=== PATIENT | female | born 1950 | race Caucasian/White ===

== ENCOUNTER 2017-04-25 11:56 | Observation (INO) | payer MEDICARE ==
[2017-04-25] MEDS ORDERED: NITROGLYCERIN OINT 1 INCH/GM PACKET TOPICAL STA (12:23)
[2017-04-25] MEDS: ASPIRIN 81 MG PO STA ×2 (12:32→12:34)
--- NOTE | 2017-04-25 12:32 | ED ---
General Adult HPI - General Chief complaint: Chest Pain Stated complaint: chest pain Time Seen by Provider: 04/25/17 12:00 Source: patient, RN notes reviewed Mode of arrival: wheelchair Limitations: no limitations - History of Present Illness Initial comments: This is a 66-year-old female presents emergency department stating that she thinks she had a heart attack on . Patient states she started having chest pain on with some shortness of breath and nauseous she states that the pain lasted all day long but she didn't come in because she had worked to that today. Patient states the pain is been constant ever since but not quite as bad as it was on . Patient states she's had no recent fever chills or cough. Patient denies any headache patient denies lightheadedness patient denies dizziness patient denies any near syncopal episodes. Patient denies abdominal pain patient denies nausea vomiting diarrhea. Patient has a smoking history and states she has high cholesterol she also has a mother who had a heart attack. - Related Data Home Medications Medication Instructions Recorded Confirmed Hydrocodone/Acetaminophen [[place] 1 tab PO DAILY PRN 04/25/17 04/25/17 10-325] diphenhydrAMINE HCL [Children's 25 mg PO HS PRN 04/25/17 04/25/17 Benadryl Allergy] Allergies Allergy/AdvReac Type Severity Reaction Status Date / Time ibuprofen [From Motrin] Allergy Unknown Verified 04/25/17 12:51 Review of Systems ROS Statement: Those systems with pertinent positive or pertinent negative responses have been documented in the HPI. ROS Other: All systems not noted in ROS Statement are negative. Past Medical History Past Medical History: No Reported History History of Any Multi-Drug Resistant Organisms: None Reported Past Surgical History: Section, Tubal Ligation Additional Past Surgical History / Comment(s): right knee surg Past Psychological History: No Psychological Hx Reported Smoking Status: Current some day smoker Past Alcohol Use History: Occasional Past Drug Use History: None Reported General Exam - General Exam Comments Initial Comments: GENERAL: Patient is well-developed and well-nourished. Patient is nontoxic and well- hydrated and is in mild distress. ENT: Neck is soft and supple. No significant lymphadenopathy is noted. Oropharynx is clear. Moist mucous membranes. Neck has full range of motion without eliciting any pain. EYES: The sclera were anicteric and conjunctiva were pink and moist. Extraocular movements were intact and pupils were equal round and reactive to light. Eyelids were unremarkable. PULMONARY: Unlabored respirations. Good breath sounds bilaterally. No audible rales rhonchi or wheezing was noted. CARDIOVASCULAR: There is a regular rate and rhythm without any murmurs gallops or rubs. ABDOMEN: Soft and nontender with normal bowel sounds. No palpable organomegaly was noted. There is no palpable pulsatile mass. SKIN: Skin is clear with no lesions or rashes and otherwise unremarkable. NEUROLOGIC: Patient is alert and oriented x3. Cranial nerves II through XII are grossly intact. Motor and sensory are also intact. Normal speech, volume and content. Symmetrical smile. MUSCULOSKELETAL: Normal extremities with adequate strength and full range of motion. No lower extremity swelling or edema. No calf tenderness. LYMPHATICS: No significant lymphadenopathy is noted PSYCHIATRIC: Normal psychiatric evaluation. Normal interpersonal interactions appears functionally intact in deals appropriately with others. No signs of depression. No signs of anxiety. Limitations: no limitations Course Vital Signs 04/25/17 11:57 Temperature 98.7 F Pulse Rate 103 H Respiratory 16 Rate Blood Pressure 168/97 Medical Decision Making - Medical Decision Making EKG shows normal sinus rhythm at 94 bpm ME interval is 132 QRS is 84 QT interval 368 QTC is 460. Patient's EKG shows no ST segment elevation or depression or T wave abnormalities are noted Chest x-ray shows COPD. - Lab Data Result diagrams: 04/25/17 12:15 04/25/17 12:15 Lab Results 04/25/17 04/25/17 04/25/17 Range/Units 12:15 12:15 12:15 WBC 6.6 (3.8-10.6) k/uL RBC 4.32 (3.80-5.40) m/uL Hgb 14.7 (11.4-16.0) gm/dL Hct 42.1 (34.0-46.0) % MCV 97.4 (80.0-100.0) fL MCH 34.1 (25.0-35.0) pg MCHC 35.0 (31.0-37.0) g/dL RDW 13.0 (11.5-15.5) % Plt Count 244 (150-450) k/uL Neutrophils % 58 % Lymphocytes % 30 % Monocytes % 8 % Eosinophils % 1 % Basophils % 1 % Neutrophils # 3.8 (1.3-7.7) k/uL Lymphocytes # 2.0 (1.0-4.8) k/uL Monocytes # 0.5 (0-1.0) k/uL Eosinophils # 0.1 (0-0.7) k/uL Basophils # 0.1 (0-0.2) k/uL PT (9.0-12.0) sec INR (<1.2) APTT (22.0-30.0) sec Sodium 137 (137-145) mmol/L Potassium 4.1 (3.5-5.1) mmol/L Chloride 102 (98-107) mmol/L Carbon Dioxide 24 (22-30) mmol/L Anion Gap 11 mmol/L BUN 7 (7-17) mg/dL Creatinine 0.59 (0.52-1.04) mg/dL Est GFR (MDRD) Af Amer >60 (>60 ml/min/1.73 sqM) Est GFR (MDRD) Non-Af >60 (>60 ml/min/1.73 sqM) Glucose 107 H (74-99) mg/dL Calcium 9.0 (8.4-10.2) mg/dL Magnesium 2.0 (1.6-2.3) mg/dL Total Bilirubin 0.6 (0.2-1.3) mg/dL AST 40 H (14-36) U/L ALT 54 H (9-52) U/L Alkaline Phosphatase 65 (38-126) U/L Total Creatine Kinase 50 (30-135) U/L CK-MB (CK-2) 0.3 (0.0-2.4) ng/mL CK-MB (CK-2) Rel Index 0.6 Troponin I <0.012 (0.000-0.034) ng/mL Total Protein 7.8 (6.3-8.2) g/dL Albumin 4.3 (3.5-5.0) g/dL 04/25/17 Range/Units 12:15 WBC (3.8-10.6) k/uL RBC (3.80-5.40) m/uL Hgb (11.4-16.0) gm/dL Hct (34.0-46.0) % MCV (80.0-100.0) fL MCH (25.0-35.0) pg MCHC (31.0-37.0) g/dL RDW (11.5-15.5) % Plt Count (150-450) k/uL Neutrophils % % Lymphocytes % % Monocytes % % Eosinophils % % Basophils % % Neutrophils # (1.3-7.7) k/uL Lymphocytes # (1.0-4.8) k/uL Monocytes # (0-1.0) k/uL Eosinophils # (0-0.7) k/uL Basophils # (0-0.2) k/uL PT 10.1 (9.0-12.0) sec INR 1.0 (<1.2) APTT 23.9 (22.0-30.0) sec Sodium (137-145) mmol/L Potassium (3.5-5.1) mmol/L Chloride (98-107) mmol/L Carbon Dioxide (22-30) mmol/L Anion Gap mmol/L BUN (7-17) mg/dL Creatinine (0.52-1.04) mg/dL Est GFR (MDRD) Af Amer (>60 ml/min/1.73 sqM) Est GFR (MDRD) Non-Af (>60 ml/min/1.73 sqM) Glucose (74-99) mg/dL Calcium (8.4-10.2) mg/dL Magnesium (1.6-2.3) mg/dL Total Bilirubin (0.2-1.3) mg/dL AST (14-36) U/L ALT (9-52) U/L Alkaline Phosphatase (38-126) U/L Total Creatine Kinase (30-135) U/L CK-MB (CK-2) (0.0-2.4) ng/mL CK-MB (CK-2) Rel Index Troponin I (0.000-0.034) ng/mL Total Protein (6.3-8.2) g/dL Albumin (3.5-5.0) g/dL Disposition Clinical Impression: Chest pain Disposition: ADMITTED IP TO THIS HOSP Referrals: Damien Light DO [Primary Care Provider] - 1-2 days Time of Disposition: 13:55
[2017-04-25 12:44] LABS: Basophils # (A) 0.1 k/uL (0-0.2); Basophils % (A) 1 %; CH 34.3; CHCM 35.4; Eosinophils # (A) 0.1 k/uL (0-0.7); Eosinophils % (A) 1 %; HCT 42.1 % (34.0-46.0); HDW 2.38; HGB 14.7 gm/dL (11.4-16.0); Luc # (Auto) 0.16; Luc % (Auto) 2; Lymphocytes % (A) 30 %; MCH 34.1 pg (25.0-35.0); MCV 97.4 fL (80.0-100.0); Monocytes # (A) 0.5 k/uL (0-1.0); Monocytes % (A) 8 %; Neutrophils # (A) 3.8 k/uL (1.3-7.7); Neutrophils % (A) 58 %; RBC 4.32 m/uL (3.80-5.40); WBC 6.6 k/uL (3.8-10.6)
[2017-04-25 12:48] LABS: ALT 54 U/L (9-52); AST 40 U/L (14-36); Alkaline Phosphatase 65 U/L (38-126); Anion Gap 11 mmol/L; Blood Urea Nitrogen 7 mg/dL (7-17); Carbon Dioxide 24 mmol/L (22-30); Chloride 102 mmol/L (98-107); Glucose 107 mg/dL (74-99); Non-African American GFR(MDRD) >60 (>60 ml/min/1.73 sqM); Potassium 4.1 mmol/L (3.5-5.1); Sodium 137 mmol/L (137-145); Total Bilirubin 0.6 mg/dL (0.2-1.3); Total Protein 7.8 g/dL (6.3-8.2)
--- NOTE | 2017-04-25 12:50 | XR ---
EXAMINATION TYPE: XR chest 2V DATE OF EXAM: 04/25/2017 HISTORY: Chest Pain. REFERENCE: NONE. FINDINGS: Lung volumes are prominent. The lungs are clear. Pleural space are clear. The heart is not enlarged. IMPRESSION: COPD.
[2017-04-25 12:58] LABS: Partial Thromboplastin Time 23.9 sec (22.0-30.0); Prothrombin Time 10.1 sec (9.0-12.0)
[2017-04-25 13:15] LABS: Creatine Kinase 50 U/L (30-135)
[2017-04-25 13:28] LABS: Creatine Kinase MB 0.3 ng/mL (0.0-2.4); Troponin I <0.012 ng/mL (0.000-0.034)
[2017-04-25] MEDS ORDERED: NITROGLYCERIN SL TABS 0.4 MG TAB SUBLINGUAL PRN (13:56)
[2017-04-25 15:44] VITALS: BMI 208.7
[2017-04-25 18:56] LABS: Creatine Kinase 41 U/L (30-135)
[2017-04-25 19:10] LABS: Creatine Kinase MB 0.2 ng/mL (0.0-2.4); Troponin I <0.012 ng/mL (0.000-0.034)
[2017-04-25] MEDS: NITROGLYCERIN OINT 1 INCH/GM PACKET TOPICAL SCH (20:29)
[2017-04-25] MEDS: NICOTINE 7MG/24HR PATCH TRANSDERM SCH ×2 (23:12→23:14)
[2017-04-25] MEDS: ENOXAPARIN 40 MG/0.4 ML SYRINGE SQ SCH (23:12)
[2017-04-25] MEDS: LISINOPRIL-HCTZ 10-12.5 MG 1 EACH TAB PO SCH (23:12)
[2017-04-26] MEDS: NITROGLYCERIN OINT 1 INCH/GM PACKET TOPICAL SCH ×3 (00:15→12:16)
[2017-04-26 01:22] LABS: Creatine Kinase 41 U/L (30-135)
[2017-04-26 01:35] LABS: Creatine Kinase MB <0.2 ng/mL (0.0-2.4); Troponin I <0.012 ng/mL (0.000-0.034)
[2017-04-26 03:25] VITALS: RESP 16
[2017-04-26 04:59] LABS: Cholesterol 204 mg/dL (<200); HDL Cholesterol 90 mg/dL (40-60)
--- NOTE | 2017-04-26 05:09 | HP ---
HISTORY AND PHYSICAL DATE OF ADMISSION: 04/25/2017 PRESENTING COMPLAINT: Chest pain. HISTORY OF PRESENTING COMPLAINT: This is a pleasant 66-year-old patient of Dr. Light with unremarkable past medical history. The patient woke up from a sleep with anterior chest wall pain, felt grabbing sensation. Patient was short of breath, some nausea, broke out in a sweat. Patient's pain lasted for varying duration, no radiation. No prior cardiac history. Patient is rather active. The patient is a long-standing smoker. The patient has got a cough and every time she takes a deep breath it hurts in that area. REVIEW OF SYSTEMS: CONSTITUTIONAL: Tired. HEENT: None. RESPIRATORY: As above. CARDIOVASCULAR: As above. GASTROINTESTINAL: None. GENITOURINARY: None. MUSCULOSKELETAL: Aches and pains in the joints especially the hands. DERMATOLOGICAL: None. HEMATOLOGIC: None. LYMPHATIC: None. PSYCHIATRY: None. NEUROLOGICAL: None. PAST MEDICAL HISTORY: None. PAST SURGICAL HISTORY: , tubal ligation, right knee surgery. SOCIAL HISTORY: Smoker, averages half a pack most of her life, down to 5 to 6 cigarettes a day. Alcohol none. Lives alone. FAMILY HISTORY: Reviewed noncontributory to presentation. HOME MEDICATIONS: [place] 10/325 one tablet daily p.r.n. ALLERGIES: Allergies to IBUPROFEN. PHYSICAL EXAMINATION: On examination, temperature 98.4 pulse 89, respirations 16, blood pressure 163/94, pulse ox 93% on room air. GENERAL APPEARANCE: Thin built, sitting up, tired appearing. EYES: Pupils equal. Conjunctivae normal. HENT: Oral cavity normal. NECK: JVD not raised. Mass not palpable. RESPIRATORY: Effort increased. LUNGS: Diminished breath sounds. Prolonged expiration and wheezing. CARDIOVASCULAR: First and second sounds normal. No edema. ABDOMEN: Soft, nontender. Liver and spleen not palpable. LYMPHATIC: No lymph node palpable in the neck and axillae. PSYCHIATRY: Alert and oriented x3. Mood and affect normal. NEUROLOGICAL: Pupils equal. Cranial nerves grossly intact. Power and sensation grossly intact. MUSCULOSKELETAL: Evidence of osteoarthritis, especially in the hands including Elena's and Heber[place]'s nodes. INVESTIGATION: White count 6.6, hemoglobin 14.7, platelets 244. Potassium 4.1, BUN 7, creatinine 0.59. Troponin x2 are negative. Chest x-ray shows some hyperinflation. EKG normal sinus rhythm. ASSESSMENT: 1. Anterior chest wall pain with some cardiac features in patient's risk factors include smoking with negative troponin and unremarkable EKG. Need to rule out a cardiac cause. At the same time, patient is worse when she coughs and takes a deep breath. The patient probably has got a viral pleurisy explained of symptoms. 2. Chronic obstructive pulmonary disease exacerbation in a chronic nicotine smoker. 3. Chronic nicotine dependence. Patient active smoker. 4. Primary osteoarthritis especially of the hands and other joints. PLAN: The patient is on aspirin and nitro paste. Serial cardiac enzymes are in place. Patient will need a stress test. I will start the patient on bronchodilators and that is DuoNeb and nebulized steroids. Patient counseled against smoking, given a nicotine patch. Also given Lovenox. Care was discussed at length with the patient. MMKYAWL / IJN: [id number] /
[2017-04-26] MEDS ORDERED: ACETAMINOPHEN TAB 325 MG TAB PO PRN (07:18)
[2017-04-26] MEDS: IPRATROPIUM-ALBUTEROL 3 ML NEB INHALATION SCH ×2 (08:10→11:54)
[2017-04-26] MEDS: BUDESONIDE 1 MG/2 ML NEBU INHALATION SCH (08:10)
--- NOTE | 2017-04-26 08:25 | CONS ---
CONSULTATION This is a 66-year-old lady came into the hospital with complaints of anterior chest pain. She woke up from sleep. She said she thought she had a heart attack. The pain was severe in intensity. It appears musculoskeletal, worse when she takes a deep breath or has a cough and it is actually reproducible over her chest wall, but she also complains of a squeezing sensation in the chest as well. The quality of the pain while it is atypical she also has risk factors in the form of smoking and family history of CAD. Her 3 sets of troponins are normal. EKG is unremarkable. Her pain in the anterior chest area has improved. The chest wall tenderness has also improved. But she now complains of a squeezing discomfort in the chest. Given the circumstances, I am recommending an echocardiogram, a D-dimer and stress echo and based on these we will make further recommendations. PAST MEDICAL HISTORY: 1. Remarkable for smoking and COPD. She does not have any hypertension, diabetes, myocardial infarction or CVA. 2. She is status post section, tubal ligation and right knee arthroscopic surgery. HOME MEDICATIONS: Patient has nondescript pain and takes [place] and occasionally Benadryl. ALLERGIES: She is allergic to IBUPROFEN, type of allergic reaction is unclear. PHYSICAL EXAMINATION: On examination, blood pressure is 118/70, pulse rate is 80 per minute, regular. HEENT: Unremarkable. Fundus was not examined by me. Neck is supple. No JVD. I do not hear a carotid bruit. There is no thyromegaly. Heart exam reveals S1, S2 heard normally without a rub, murmur or gallop. Lungs are clear. Abdomen is soft, nontender. Lower extremities reveal normal pulses. No edema. Central nervous system is normal. EKG reveals sinus mechanism, no acute changes. LABORATORY DATA: Laboratory data reveals unremarkable troponins. IMPRESSION: 1. Atypical musculoskeletal chest pain. 2. History of smoking. 3. History of chronic pain syndrome on [place]. RECOMMENDATIONS: The patient is complaining of headache with nitro paste, this will be discontinued. I am recommending a D-dimer. We will also do an echo and a stress echo and if these are normal she can be discharged. She has been counseled regarding the need to quit smoking. MMODL / IJN: [id number] /
[2017-04-26] MEDS ORDERED: ASPIRIN 325 MG TAB PO SCH (09:00)
[2017-04-26] MEDS: NICOTINE 7MG/24HR PATCH TRANSDERM SCH (10:12)
[2017-04-26] MEDS: LISINOPRIL-HCTZ 10-12.5 MG 1 EACH TAB PO SCH (10:15)
[2017-04-26] MEDS: ENOXAPARIN 40 MG/0.4 ML SYRINGE SQ SCH (10:16)
--- NOTE | 2017-04-26 11:21 | ECHOF ---
Referral Reason:chest pain MEASUREMENTS -------- HEIGHT: 165.1 cm WEIGHT: 55.8 kg BP: 109/68 RVIDd: 2.8 cm (< 3.3) IVSd: 1.1 cm (0.6 - 1.1) LVIDd: 4.3 cm (3.9 - 5.3) LVPWd: 1.0 cm (0.6 - 1.1) IVSs: 1.4 cm LVIDs: 2.8 cm LVPWs: 1.5 cm LA Diam: 2.7 cm (2.7 - 3.8) LAESV Index (A-L): 17.36 ml/m Ao Diam: 3.0 cm (2.0 - 3.7) AV Cusp: 2.5 cm (1.5 - 2.6) MV EXCURSION: 19.523 mm (> 18.000) MV EF SLOPE: 60 mm/s (70 - 150) EPSS: 0.7 cm MV E Zohaib: 0.76 m/s MV DecT: 280 ms MV A Zohaib: 0.83 m/s MV E/A Ratio: 0.91 RAP: 5.00 mmHg RVSP: 21.84 mmHg FINDINGS -------- Sinus rhythm. This was a technically good study. The left ventricular size is normal. Left ventricular wall thickness is normal. Overall left ventricular systolic function is normal with, an EF between 60 - 65 %. The right ventricle is normal in size and function. Normal LA size by volume 22+/-6 ml/m2. The right atrium is normal in size. Aortic valve is trileaflet and is mildly thickened. There is trace mitral regurgitation. Mild tricuspid regurgitation present. Right ventricular systolic pressure is normal at < 35 mmHg. Trace/mild (physiologic) pulmonic regurgitation. The aortic root size is normal. Normal inferior vena cava with normal inspiratory collapse consistent with estimated right atrial pressure of 5 mmHg. There is no pericardial effusion. CONCLUSIONS -------- 1. Sinus rhythm. 2. There is trace mitral regurgitation. 3. Mild tricuspid regurgitation present. 4. Right ventricular systolic pressure is normal at < 35 mmHg. 5. Trace/mild (physiologic) pulmonic regurgitation. 6. The aortic root size is normal. 7. Normal inferior vena cava with normal inspiratory collapse consistent with estimated right atrial pressure of 5 mmHg. 8. There is no pericardial effusion. 9. This was a technically good study. 10. The left ventricular size is normal. 11. Left ventricular wall thickness is normal. 12. Overall left ventricular systolic function is normal with, an EF between 60 - 65 %. 13. The right ventricle is normal in size and function. 14. Normal LA size by volume 22+/-6 ml/m2. 15. The right atrium is normal in size. 16. Aortic valve is trileaflet and is mildly thickened. [employer]OV[employer] P[employer]ER HAT MENDER: Yolette Jaime RDCS
[2017-04-26 11:50] VITALS: BP 117/83; PULSE 75; TEMP 98.7
--- NOTE | 2017-04-26 12:02 | ECHOS ---
STRESS ECHOCARDIOGRAM DATE OF SERVICE: 04/26/2017 INDICATIONS: Chest pain. MEDICATIONS:: [place]. BASELINE HEART RATE: 92 BASELINE BLOOD PRESSURE: 124/63 MAXIMUM HEART RATE: 149 MAXIMUM BLOOD PRESSURE: 186/79 85% MPHR: 132 100% MPHR: 155 METS: 7.9 MAXIMUM STAGE REACHED: III TOTAL EXERCISE TIME: 6-1/2 minutes Baseline EKG revealed a sinus mechanism with LVH by voltage criteria, nonspecific ST abnormality. Patient walked on a standard Luther protocol for 6-1/2 minutes, achieved a maximal heart rate of 149 beats per minute which is more than 85% of predicted maximum. Developed fatigue, shortness of breath but did not have any angina or arrhythmia. EKG did not reveal any ST-segment changes to indicate ischemia. By EKG criteria this is a negative stress test with fair exercise capacity. Baseline echo images revealed normal wall motion and wall thickening of all segments. At peak exercise, there was good augmentation of left ventricular wall motion and wall thickening of all segments suggesting that there is no evidence of stress-induced ischemia on this study. IMPRESSION: 1. Fair exercise capacity with a negative stress test by EKG criteria. 2. Normal stress echocardiogram. MMODL / IJN: [id number] /
--- NOTE | 2017-04-26 21:20 | P.DS ---
Providers Date of admission: 04/25/17 13:56 Expected date of discharge: 04/26/17 Attending physician: Lamin Costa Consults: 04/25/17 13:56 Consult Physician Urgent Consulting Provider: [facility] Consult Reason/Comments: Chest pain Do you want consulting provider notified?: Yes Primary care physician: [facility] Course: FINAL DIAGNOSES: -Anterior chest wall chest pain with some cardiac features in the patient's risk factors include smoking with negative troponins and unremarkable EKG. May have viral pleurisy -Chronic obstructive pulmonary disease exacerbation of chronic nicotine smoker. -Chronic nicotine dependence. Patient active smoker. -Primary osteoarthritis especially of the hands and other joints. HOSPTIAL COURSE: 66-year-old female who presented with anterior chest wall chest pain. Patient was admitted cardiology consulted, serial cardiac enzymes completed and were negative. Stress test was ordered and was negative. Patient started on bronchodilators nebulized steroids and nicotine patch for COPD as well as counseled against smoking. No further episodes of chest pain, tolerating her diet, and Lipitor in the room and [place], moving her bowels. Condition stable for discharge. PHYSICAL EXAM: CARDIOVASCULAR: First and second sounds noted no edema RESPIRATORY: Effort normal, lung sounds diminished bilaterally with prolonged expiration and wheezing. PSYCHIATRY: Alert and oriented 3 mood and affect normal Patient was seen and examined by nurse practitioner Maite Willis in all elements of the case discussed with attending Dr. Costa DISPOSITION: Discharge home. Plan - Discharge Summary New Discharge Prescriptions: New Lisinopril-Hctz 10-12.5 mg [Zestoretic 10-12.5] 1 each PO BID #60 tab Nicotine 7Mg/24Hr Patch [Habitrol] 1 patch TRANSDERM DAILY patch Nitroglycerin Sl Tabs [Nitrostat] 0.4 mg SUBLINGUAL Q5M PRN #20 tab PRN Reason: Chest Pain Albuterol Inhaler [Ventolin Hfa Inhaler] 1 - 2 puff INHALATION DIRECTED PRN #1 inhaler PRN Reason: Bronchospasm Aspirin 81 mg PO DAILY #30 chewable Ipratropium Ramer [Atrovent Hfa] 2 puff INHALATION TID #1 inhaler Continue Hydrocodone/Acetaminophen [[place] 10-325] 1 tab PO DAILY PRN PRN Reason: Pain diphenhydrAMINE HCL [Children's Benadryl Allergy] 25 mg PO HS PRN PRN Reason: Itching Discharge Medication List Hydrocodone/Acetaminophen [[place] 10-325] 1 tab PO DAILY PRN 04/25/17 [History] diphenhydrAMINE HCL [Children's Benadryl Allergy] 25 mg PO HS PRN 04/25/17 [ History] Albuterol Inhaler [Ventolin Hfa Inhaler] 1 - 2 puff INHALATION DIRECTED PRN # 1 inhaler 04/26/17 [Rx] Aspirin 81 mg PO DAILY #30 chewable 04/26/17 [Rx] Ipratropium Ramer [Atrovent Hfa] 2 puff INHALATION TID #1 inhaler 04/26/17 [Rx ] Lisinopril-Hctz 10-12.5 mg [Zestoretic 10-12.5] 1 each PO BID #60 tab 04/26/17 [ Rx] Nicotine 7Mg/24Hr Patch [Habitrol] 1 patch TRANSDERM DAILY patch 04/26/17 [Rx] Nitroglycerin Sl Tabs [Nitrostat] 0.4 mg SUBLINGUAL Q5M PRN #20 tab 04/26/17 [Rx ] Follow up Appointment(s)/Referral(s): Trena Garcia MD [STAFF PHYSICIAN] - 6 Weeks Damien Light DO [Primary Care Provider] - 1-2 days Patient Instructions/Handouts: How to Stop Smoking (DC) Discharge Disposition: HOME SELF-CARE
--- NOTE | 2017-04-28 00:06 | DS ---
DISCHARGE SUMMARY DATE OF ADMISSION: 04/25/17. DATE OF DISCHARGE: April 26, 2017. ATTENDING NOTE: Patient seen and examined by me. Discussed with my ACCOUNTANT HELPER Ms. Willis. FINAL DIAGNOSIS: 1. Left chest pain likely from underlying viral pleurisy. 2. Chronic obstructive pulmonary disease exacerbation and chronic nicotine dependence. 3. Primary osteoarthritis especially of the hands and other joints. HOSPITAL COURSE: This patient presented with chest pain, felt to be pleuritic chest pain. Troponin's were negative. The patient had a stress test that was negative. Counseled against smoking. Given a burst of bronchodilators and inhaled steroids to which she has responded. Patient again today was counseled about smoking and she has decided not to smoke any more. PHYSICAL EXAMINATION: On exam, lungs slightly decreased breath sounds. CARDIOVASCULAR: First and second are normal. 2D echo was unremarkable. Smoking cessation counseling was done for about 3-5 minutes in addition to the discharge process. MMODL / IJN: [id number] /
== END 2017-04-26 15:38 | disposition home or self-care (01) ==
LOC: EC 11:56 → 3OBS 13:56
PROVIDERS: ADMIT Hospitalist; ATTEND Hospitalist
DX: R07.89 Other chest pain (principal); J44.1 Chronic obstructive pulmonary disease with (acute) exacerbation; M19.042 Primary osteoarthritis, left hand; M19.041 Primary osteoarthritis, right hand; E78.00 Pure hypercholesterolemia, unspecified; G89.4 Chronic pain syndrome; F17.210 Nicotine dependence, cigarettes, uncomplicated; Z82.49 Family history of ischemic heart disease and other diseases of the circulatory system; Z88.6 Allergy status to analgesic agent
CPT/HCPCS: 96372 ×2; 99285; 36415; 94640; 93005; 93017; 93306; 93350; 85379; 80061; 80053; 82550 ×2; 82553 ×2; 83735; 84484 ×2; 85025; 85610; 85730; 71020; G0378 ×2; J1650 ×2

== ENCOUNTER → 2017-05-11 | Outpatient (CLI) | payer MEDICARE ==
--- NOTE | 2017-05-12 11:15 | MM ---
Reason for exam: screening (asymptomatic). Last mammogram was performed 13 years ago. History: Family history of breast cancer. Physical Findings: A clinical breast exam by your physician is recommended on an annual basis and results should be correlated with mammographic findings. MG 3D Screening Mammo W/Cad Bilateral CC and MLO view(s) were taken. Prior study comparison: May 21, 2004, left breast special view mammogram. May 08, 2004, bilateral screening mammogram. The breast tissue is heterogeneously dense. This may lower the sensitivity of mammography. New nodule central left breast 1.9cm from nipple. ASSESSMENT: Incomplete: need additional imaging evaluation, BI-RAD 0 RECOMMENDATION: Special view mammogram and ultrasound of the left breast. [facility] will attempt to contact patient to return for supplemental views and ultrasound.
== END | disposition home or self-care (01) ==
LOC: RADMAMWWP 12:53
PROVIDERS: ATTEND Family Medicine
DX: Z12.31 Encounter for screening mammogram for malignant neoplasm of breast (principal)
CPT/HCPCS: 77063; G0202

== ENCOUNTER → 2017-05-18 | Outpatient (CLI) | payer MEDICARE ==
--- NOTE | 2017-05-19 08:27 | USB ---
Reason for exam: additional evaluation requested from abnormal screening. History: Family history of breast cancer. Physical Findings: Nurse Summary: clear nipple discharge noted with left breast exam (nurse mj). US Breast Workup Limited LT Left breast ultrasound demonstrates a 1.2 x 1.2 x 0.7cm oval, mixed, hyperechoic lesion at the retroareolar nipple, ductal ectasia at the nipple and a node at the axilla. These results were verbally communicated with the patient and result sheet given to the patient on 05/18/17. ASSESSMENT: Suspicious, BI-RAD 4 RECOMMENDATION: Ultrasound core biopsy of the left breast. Called Dr. Light with mammographic findings and has scheduled an appointment for the patient for 05/20/17 at 12:[address] Mc. PRELIMINARY REPORT CALLED AND FAXED TO DR. MC ON 05/19/17.
== END | disposition home or self-care (01) ==
LOC: RADMAMWWP 13:39
PROVIDERS: ATTEND Family Medicine
DX: R92.8 Other abnormal and inconclusive findings on diagnostic imaging of breast (principal)

== ENCOUNTER → 2017-06-08 | Day surgery (SDC) | payer MEDICARE ==
[2017-06-08 12:10] VITALS: PULSE 72; RESP 16; BMI 20.7
[2017-06-08 12:50] VITALS: BP 134/82; TEMP 98.4
--- NOTE | 2017-06-08 13:24 | USB ---
EXAMINATION TYPE: US biopsy breast VAD LT, MG diagnostic mammo LT wo CAD DATE OF EXAM: 06/08/2017 CLINICAL HISTORY: R92.8 Abnormal Mammogram. Abnormal ultrasound TECHNIQUE: Ultrasound guided core biopsy of left breast with clip placement and follow-up two-view mammogram. COMPARISON: Prior left breast ultrasound May 18, 2017. Prior bilateral breast mammogram May 11, 2017. FINDINGS: The procedure of ultrasound guided core biopsy was explained to the patient. Benefits, alternatives, and risks were discussed. An informed consent was then obtained. The patient was placed in supine positioning for imaging and for the procedure. Preprocedure imaging redemonstrates cystic lesion with solid vascular nodule subareolar region of left breast. The overlying skin was prepped and draped in usual sterile fashion. Lidocaine is used as anesthetic into the skin. Lidocaine with epinephrine is used as anesthetic into the deeper tissue up to area of concern in the left breast. Under ultrasound guidance, a 12-gauge vacuum assisted biopsy gun device was used to obtain 3 core samples. Lesion is less well-seen after first biopsy, no residual surrounding fluid is present. Following this, a biopsy clip was left in lesion. The patient tolerated the procedure well without any immediate complication. The patient was kept in the radiology department for short stay after the procedure and then discharged home in stable condition. IMPRESSION: Successful, uncomplicated ultrasound guided core biopsy of area of concern in the left breast, full pathology results to follow. Intermediate index of suspicion noted at time of procedure. Suspect papilloma. No symptoms of nipple discharge per patient. Pathology Results: High Risk BREAST, LEFT, SITE A, POSTERIOR NIPPLE, ULTRASOUND GUIDED BIOPSY: INTRADUCTAL PAPILLOMA. FIBROCYSTIC CHANGE (STROMAL FIBROSIS, CYST FORMATION, APOCRINE METAPLASIA, ADENOSIS AND DUCT HYPERPLASIA). Recommendation Surgical consult of the left breast (re-excise for papilloma) [facility]
== END ==
LOC: RADUSWWP 11:50
PROVIDERS: ATTEND Surgery
DX: D24.2 Benign neoplasm of left breast (principal); N60.32 Fibrosclerosis of left breast; N60.82 Other benign mammary dysplasias of left breast; N60.22 Fibroadenosis of left breast
CPT/HCPCS: 88305; 19083; G0206; A4648; J2001

== ENCOUNTER → 2017-12-21 | Outpatient (CLI) | payer MEDICARE ==
--- NOTE | 2017-12-21 12:02 | US ---
EXAMINATION TYPE: US liver DATE OF EXAM: 12/21/2017 COMPARISON: NONE CLINICAL HISTORY: 67-year-old female R94.5 ABN Liver Function Studies. Abnormal labs TECHNIQUE: Multiple sonographic images of the right upper quadrant are obtained. FINDINGS: EXAM MEASUREMENTS: Liver Length: 15.0 cm Gallbladder Wall: 0.1 cm CBD: 0.3 cm CHD: 0.3 cm Right Kidney: 11.9 x 4.4 x 4.3 cm Pancreas: appears heterogeneous, difficult to exclude some underlying punctate calcifications throug hout. Liver: wnl Gallbladder: wnl Evidence for sonographic Kirk's sign: neg CBD: wnl CHD: wnl Right Kidney: No hydronephrosis IMPRESSION: 1. Sonographically unremarkable appearance to the liver. 2. Pancreatic heterogeneity may be on a technical basis. There may be some punctate calcifications th roughout the pancreas. Correlate for the possibility of chronic pancreatitis in this patient.
== END | disposition home or self-care (01) ==
LOC: RADUSWWP 09:09
PROVIDERS: ATTEND Family Medicine
DX: R94.5 Abnormal results of liver function studies (principal)
CPT/HCPCS: 76705

== ENCOUNTER → 2018-02-10 | Outpatient (CLI) | payer MEDICARE ==
[2018-02-10 11:17] VITALS: BP 125/81; PULSE 76; TEMP 97.9; BMI 22.8
--- NOTE | 2018-02-10 11:45 | P.PN ---
Subjective Progress Note Date: 02/10/18 Patient is a 67-year-old white female who is status post left breast needle local excisional biopsy in June 2017 for an intraductal papilloma. The patient has no complaints related to the left breast however at this time she is complaining of pain in the right breast near the area of her underwire bra. She does not note any lumps or masses in her breast. No nipple discharge or changes noted. We have discussed the breast discomfort may be related to caffeine or nicotine. She smokes 5 cigarettes per day and drinks one cup of coffee a day. She denies any soda intake. The patient has not had a repeat mammogram yet since her left biopsy. family history: grandmother at 99 cervical cancer menarche: 14 : 3, breast fed all menopause: 51 hormones: none BCP: 1 year ROS: HEENT: No pain in her use change in vision sores in her nose or mouth she does wear glasses Lungs: 5 cigarettes per day smoker, no history of COPD or pneumonia Heart: Negative GI: negative : Negative Objective - Vital Signs Vital signs: Vital Signs Temp 97.9 F 02/10/18 11:14 Pulse 76 02/10/18 11:14 Resp BP 125/81 02/10/18 11:14 Pulse Ox 95 02/10/18 11:14 Intake & Output 02/09/18 02/10/18 02/10/18 18:59 06:59 18:59 Weight 62.142 kg - Constitutional General appearance: Present: average body habitus - EENT Eyes: Present: EOMI ENT: Present: hearing grossly normal - Neck Neck: Present: normal ROM Thyroid: bilateral: normal size - Respiratory Respiratory: bilateral: CTA - Cardiovascular Rhythm: regular Heart sounds: normal: S1, S2 - Gastrointestinal General gastrointestinal: Present: normal bowel sounds, soft - Integumentary Integumentary Comment(s): Breast examination: Right breast: Multiple positional exam mild tenderness in the lateral aspect with increased fibroglandular tissue no discrete masses Right axilla: No adenopathy of concern Left breast: No dominant masses or nodules of concern and multiple positional exam Left axilla: No adenopathy of concern - Musculoskeletal Musculoskeletal: Present: gait normal - Psychiatric Psychiatric: Present: A&O x's 3, appropriate affect, intact judgment & insight Assessment and Plan Assessment: Impression/plan: 1. Discomfort in the right breast with no dominant masses or nodules of concern increased fiber cystic changes in the lateral aspect 2. No dominant masses or nodules of concern in the left breast Plan: 1. Bilateral mammogram 2. Repeat evaluation after mammogram 3. We will discuss that the breast discomfort may be related to nicotine and/ or caffeine and if recommended stopping these things the patient understands and wishes to to comply CC: Dr. Light
== END | disposition home or self-care (01) ==
LOC: WWCWWP 10:49
PROVIDERS: ATTEND Surgery
DX: D24.2 Benign neoplasm of left breast (principal); F17.210 Nicotine dependence, cigarettes, uncomplicated; N64.4 Mastodynia

== ENCOUNTER → 2018-02-24 | Outpatient (CLI) | payer MEDICARE ==
--- NOTE | 2018-02-24 14:42 | MM ---
Reason for exam: follow-up at short interval from prior study. Last mammogram was performed 9 months ago. History: Patient has history of high-risk lesion on a previous biopsy at age 67. Family history of breast cancer. High risk MG pre op needle loc LT of the left breast, July 13, 2017. High risk US biopsy breast VAD LT of the left breast, June 08, 2017. Physical Findings: Nurse did not find any significant physical abnormalities on exam. MG 3D Diag Mammo W/Cad LIYAH Bilateral CC and MLO view(s) were taken. Prior study comparison: June 08, 2017, left breast MG diagnostic mammo LT wo CAD. May 11, 2017, bilateral MG 3d screening mammo w/cad. There are scattered fibroglandular densities. Finding #1: Architectural distortion in the upper outer quadrant, anterior middle position of the left breast consistent with known excisional biopsy. Finding #2: There are typically benign round calcifications in both breasts. There is a chronic nodularity in the right breast. There is no discrete abnormality. These results were verbally communicated with the patient and result sheet given to the patient on 02/24/18. ASSESSMENT: Benign, BI-RAD 2 RECOMMENDATION: Routine screening mammogram of both breasts in 1 year. Manage patient on a clinical basis.
== END | disposition home or self-care (01) ==
LOC: RADMAMWWP 09:53
PROVIDERS: ATTEND Surgery
DX: N64.4 Mastodynia (principal)
CPT/HCPCS: 77066; G0279; 77062

== ENCOUNTER → 2019-02-27 | Outpatient (CLI) | payer MEDICARE ==
--- NOTE | 2019-02-28 08:58 | MM ---
Reason for exam: screening (asymptomatic). Last mammogram was performed 1 year ago. History: Patient has history of high-risk lesion on a previous biopsy at age 67. Family history of breast cancer. High risk MG pre op needle loc LT of the left breast, July 13, 2017. High risk US biopsy breast VAD LT of the left breast, June 08, 2017. Physical Findings: A clinical breast exam by your physician is recommended on an annual basis and results should be correlated with mammographic findings. MG 3D Screening Mammo W/Cad Bilateral CC and MLO view(s) were taken. Prior study comparison: February 24, 2018, bilateral MG 3d diag mammo w/cad LIYAH. June 08, 2017, left breast MG diagnostic mammo LT wo CAD. There are scattered fibroglandular densities. No significant changes when compared with prior studies. ASSESSMENT: Benign, BI-RAD 2 RECOMMENDATION: Routine screening mammogram of both breasts in 1 year.
== END | disposition home or self-care (01) ==
LOC: RADMAMWWP 11:05
PROVIDERS: ATTEND Family Medicine
DX: Z12.31 Encounter for screening mammogram for malignant neoplasm of breast (principal)
CPT/HCPCS: 77063; 77067

== ENCOUNTER → 2020-04-03 | Outpatient (CLI) | payer MEDICARE ==
--- NOTE | 2020-04-08 18:24 | BD ---
EXAMINATION TYPE: Axial Bone Density DATE OF EXAM: 04/03/2020 COMPARISON: 04.04.2004 CLINICAL HISTORY: 69 YR OLD FEMALE....ICD-10 CODE: Z13.820 OSTEOPOROSIS SCREENING Height: 63.5 Weight: 158 FRAX RISK QUESTIONS: History of Fracture in Adulthood: YES RISK FACTORS HISTORY OF: HX OF HAND FRACTURES X2 2019 Postmenopausal woman: YES, AT AGE 51 Lost more than 2 inches in height since high school: YES Hyperparathyroidism: NO Adrenal Insufficiency: NO MEDICATIONS: Additional Medications: ASPIRIN ONLY AND MULTIVITAMIN AND VIT D/CALCIUM Additional History: NOTHING ADDITIONAL TO ADD, HIST OF HEP C EXAM MEASUREMENTS: Bone mineral densitometry was performed using the [employer] System. Bone mineral density as measured about the Lumbar spine is: ----- L1-L4(G/cm2): 1.245 T Score Values are as follows: ----- L1: -0.8 ----- L2: -0.6 ----- L3: -0.3 ----- L4: 3.9 ----- L1-L4: 0.5 Bone mineral density has: Increased 60.% SINCE 04.04.2004 Bone mineral density about the R hip (g/cm2): 0.983 Bone mineral density about the L hip (g/cm2): 0.951 T Score values are as follows: -----R Neck: -1.4 -----L Neck: -1.6 -----R Total: -0.2 -----L Total: -0.4 Bone mineral density has: Decreased -13.7% SINCE 04.04.2004 FRAX%$s: THERE IS A 16.0% CHANCE FOR A MAJOR OSTEOPOROTIC FX AND A 2.2% FOR HIP.....PROBABILITY FOR FX IN 10 YRS TIME IMPRESSION: Osteopenia (T Score between -2.5 and -1). There is slightly increased risk of fracture and the patient may be considered for treatment. Re-Screen 2-5 years. NOTE: T-SCORE=SD OF THE YOUNG ADULT MEAN.
== END | disposition home or self-care (01) ==
LOC: RADBDWWP 13:03
PROVIDERS: ATTEND Family Medicine
DX: M85.80 Other specified disorders of bone density and structure, unspecified site (principal)
CPT/HCPCS: 77080

== ENCOUNTER → 2020-05-21 | Outpatient (CLI) | payer MEDICARE ==
--- NOTE | 2020-05-22 11:48 | MM ---
Reason for exam: screening (asymptomatic). Last mammogram was performed 1 year and 3 months ago. History: Patient is postmenopausal and has history of high-risk lesion on a previous biopsy at age 67. Family history of breast cancer. High risk MG pre op needle loc LT of the left breast, July 13, 2017. High risk US biopsy breast VAD LT of the left breast, June 08, 2017. Physical Findings: A clinical breast exam by your physician is recommended on an annual basis and results should be correlated with mammographic findings. MG 3D Screening Mammo W/Cad Bilateral CC and MLO view(s) were taken. Prior study comparison: February 27, 2019, bilateral MG 3d screening mammo w/cad. February 24, 2018, bilateral MG 3d diag mammo w/cad LIYAH. There are scattered fibroglandular densities. No significant changes when compared with prior studies. ASSESSMENT: Benign, BI-RAD 2 RECOMMENDATION: Routine screening mammogram of both breasts in 1 year.
== END | disposition home or self-care (01) ==
LOC: RADMAMWWP 13:02
PROVIDERS: ATTEND Family Medicine
DX: Z12.31 Encounter for screening mammogram for malignant neoplasm of breast (principal)
CPT/HCPCS: 77063; 77067

== ENCOUNTER 2021-03-13 09:55 | Emergency (ER) | payer MEDICARE ==
[2021-03-13 10:01] VITALS: TEMP 98.6
[2021-03-13] MEDS ORDERED: ONDANSETRON 4 MG/2 ML VIAL IVP STA (10:20)
[2021-03-13] MEDS ORDERED: MORPHINE SULFATE 4 MG/ML SYRINGE IV STA (10:20)
[2021-03-13] MEDS ORDERED: SODIUM CHLORIDE 0.9% 1,000 ML IV STA (10:20)
[2021-03-13 10:52] LABS: Basophils # (A) 0.1 k/uL (0-0.2); Basophils % (A) 1 %; Eosinophils # (A) 0.1 k/uL (0-0.7); Eosinophils % (A) 2 %; HCT 40.2 % (34.0-46.0); HGB 13.8 gm/dL (11.4-16.0); Lymphocytes # (A) 1.9 k/uL (1.0-4.8); Lymphocytes % (A) 27 %; MCH 31.8 pg (25.0-35.0); MCHC 34.5 g/dL (31.0-37.0); MCV 92.2 fL (80.0-100.0); Mean Platelet Volume 6.8; Monocytes # (A) 0.5 k/uL (0-1.0); Monocytes % (A) 7 %; Neutrophils # (A) 4.1 k/uL (1.3-7.7); Neutrophils % (A) 60 %; Platelet Count 296 k/uL (150-450); RBC 4.36 m/uL (3.80-5.40); RDW 13.3 % (11.5-15.5); WBC 6.9 k/uL (3.8-10.6)
[2021-03-13 11:06] LABS: INR 0.9 (<1.2); Partial Thromboplastin Time 22.4 sec (22.0-30.0)
[2021-03-13 11:12] LABS: ALT 17 U/L (4-34); AST 25 U/L (14-36); African American GFR (CKD) >90 (>60 ml/min/1.73 sqM); Albumin 4.6 g/dL (3.5-5.0); Alkaline Phosphatase 62 U/L (38-126); Anion Gap 10 mmol/L; Blood Urea Nitrogen 11 mg/dL (7-17); Calcium 9.5 mg/dL (8.4-10.2); Carbon Dioxide 23 mmol/L (22-30); Chloride 103 mmol/L (98-107); Glucose 122 mg/dL (74-99); Non-African American GFR(CKD) >90 (>60 ml/min/1.73 sqM); Potassium 4.2 mmol/L (3.5-5.1); Sodium 136 mmol/L (137-145); Total Bilirubin 0.2 mg/dL (0.2-1.3); Total Protein 7.8 g/dL (6.3-8.2)
[2021-03-13 11:54] VITALS: BP 156/91; RESP 20
[2021-03-13] MEDS ORDERED: MORPHINE SULFATE 4 MG/ML SYRINGE IVP STA (12:01)
--- NOTE | 2021-03-13 12:59 | CT ---
EXAMINATION TYPE: CT angio head neck DATE OF EXAM: 03/13/2021 HISTORY: Right sided head and neck pain for 1 week COMPARISON: CT DLP: 1517.1 mGycm. Automated Exposure Control for Dose Reduction was Utilized. TECHNIQUE: CTA scan of the neck is performed without and with IV Contrast, patient injected with 65 ml mL of Isovue 370, axial images are obtained, coronal and sagittal reformatted images are reviewed. Three-D reconstructed images are created on an independent workstation and reviewed. Source images are reviewed. FINDINGS: Brain: Patchy periventricular white matter hypodensity is present, likely on the basis of chronic whi te matter ischemic changes. No suspicious acute change is evident. Paranasal sinuses and mastoid air cells are clear. Carotid/Vascular Structures: There is a two-vessel arch. Vertebral arteries are codominant. Carotid b ifurcations appear normal without significant flow-limiting stenosis. Internal carotid arteries and v ertebral arteries are patent to the level of the skull base. Cervical of [place]: Vertebral basilar system appears normal. Posterior cerebral vasculature is unrema rkable. Internal carotid arteries bifurcate normally into A1 and M1 segments. A2 segments are normal. The anterior communicating artery may be very faintly identified on thin section source images. Post erior communicating arteries are not clearly identified. IMPRESSION: 1. No flow-limiting stenosis bilateral carotid bifurcations. 2. Normal [place] of [place]. 3. Chronic appearing periventricular white matter ischemic type changes. NASCET criteria was used in interpretation of this exam?
--- NOTE | 2021-03-13 13:10 | ED ---
Headache HPI - General Chief Complaint: Headache Stated Complaint: Sent by PCP/Head & Neck pain Time Seen by Provider: 03/13/21 10:03 Source: patient, RN notes reviewed Mode of arrival: ambulatory Limitations: no limitations - History of Present Illness Initial Comments: Patient is a 70-year-old female that presents to emergency department complaining of headache for the past several weeks. She notes today got worse this morning and came in for evaluation. She notes that she did call her primary care who told her to come in to get a computed tomography scan. Patient was otherwise well-appearing. She notes that the pain started at the back of h er head and when he got worse at wrapped around covering her entire head. She notes that she does have photophobia and nausea. She is otherwise a well- appearing 70-year-old female she denied any chest pain shortness of breath coming diarrhea constipation fever fatigue chills. - Related Data Home Medications Medication Instructions Recorded Confirmed Acetaminophen Tab [Tylenol Tab] 1,000 mg PO Q6HR PRN 03/13/21 03/13/21 Aspirin 81 mg PO HS 03/13/21 03/13/21 HYDROcodone/APAP 5-325MG [[place] 1 tab PO DAILY PRN 03/13/21 03/13/21 5-325] Ibuprofen [Motrin Ib] 600 mg PO Q8H PRN 03/13/21 03/13/21 Allergies Allergy/AdvReac Type Severity Reaction Status Date / Time No Known Allergies Allergy Verified 03/13/21 10:59 Review of Systems ROS Statement: Those systems with pertinent positive or pertinent negative responses have been documented in the HPI. ROS Other: All systems not noted in ROS Statement are negative. Past Medical History Past Medical History: COPD, Osteoarthritis (OA) Additional Past Medical History / Comment(s): Arthritis in hands. States dislocated rib 05/2017. Also states she bleeds easily. History of Any Multi-Drug Resistant Organisms: None Reported Past Surgical History: Section, Orthopedic Surgery, Tubal Ligation Additional Past Surgical History / Comment(s): SECTION X3. right knee surg. left hand. Past Anesthesia/Blood Transfusion Reactions: No Reported Reaction Past Psychological History: No Psychological Hx Reported Smoking Status: Former smoker Past Alcohol Use History: Occasional Past Drug Use History: Marijuana - Past Family History Mother Family Medical History: Cancer Additional Family Medical History / Comment(s): Ureter Father Family Medical History: Cancer General Exam Limitations: no limitations General appearance: alert, in no apparent distress Head exam: Present: atraumatic, normocephalic, normal inspection Eye exam: Present: normal appearance, PERRL, EOMI. Absent: scleral icterus, conjunctival injection, periorbital swelling Neck exam: Present: normal inspection Respiratory exam: Present: normal lung sounds bilaterally. Absent: respiratory distress, wheezes, rales, rhonchi, stridor Cardiovascular Exam: Present: regular rate, normal rhythm, normal heart sounds. Absent: systolic murmur, diastolic murmur, rubs, gallop, clicks GI/Abdominal exam: Present: soft, normal bowel sounds. Absent: distended, tenderness, guarding, rebound, rigid Extremities exam: Present: normal inspection, full ROM, normal capillary refill. Absent: tenderness, pedal edema, joint swelling, calf tenderness Neurological exam: Present: alert, oriented X3 Psychiatric exam: Present: normal affect, normal mood Skin exam: Present: warm, dry, intact, normal color. Absent: rash Course Vital Signs 03/13/21 03/13/21 03/13/21 09:57 11:00 11:53 Temperature 98.6 F Pulse Rate 111 H 90 94 Respiratory 18 18 20 Rate Blood Pressure 193/122 132/97 156/91 O2 Sat by Pulse 93 L 95 95 Oximetry Medical Decision Making - Medical Decision Making 70-year-old female complaining of migraine type headache for the last several weeks. Sent in by primary care to get computed tomography scan. Basic labs, CT angiography of the brain, 4 mg of morphine, 4 mg Zofran, 1 L normal saline ordered. Labs unremarkable. Computed tomography scan negative for any acute process. Case discussed with Dr. Small, patient discharge home with follow-up primary care and neurologist as needed. No - Lab Data Result diagrams: 03/13/21 10:42 03/13/21 10:42 Lab Results 03/13/21 03/13/21 03/13/21 Range/Units 10:42 10:42 10:42 WBC 6.9 (3.8-10.6) k/uL RBC 4.36 (3.80-5.40) m/uL Hgb 13.8 (11.4-16.0) gm/dL Hct 40.2 (34.0-46.0) % MCV 92.2 (80.0-100.0) fL MCH 31.8 (25.0-35.0) pg MCHC 34.5 (31.0-37.0) g/dL RDW 13.3 (11.5-15.5) % Plt Count 296 (150-450) k/uL MPV 6.8 Neutrophils % 60 % Lymphocytes % 27 % Monocytes % 7 % Eosinophils % 2 % Basophils % 1 % Neutrophils # 4.1 (1.3-7.7) k/uL Lymphocytes # 1.9 (1.0-4.8) k/uL Monocytes # 0.5 (0-1.0) k/uL Eosinophils # 0.1 (0-0.7) k/uL Basophils # 0.1 (0-0.2) k/uL PT 10.0 (9.0-12.0) sec INR 0.9 (<1.2) APTT 22.4 (22.0-30.0) sec Sodium 136 L (137-145) mmol/L Potassium 4.2 (3.5-5.1) mmol/L Chloride 103 (98-107) mmol/L Carbon Dioxide 23 (22-30) mmol/L Anion Gap 10 mmol/L BUN 11 (7-17) mg/dL Creatinine 0.55 (0.52-1.04) mg/dL Est GFR (CKD-EPI)AfAm >90 (>60 ml/min/1.73 sqM) Est GFR (CKD-EPI)NonAf >90 (>60 ml/min/1.73 sqM) Glucose 122 H (74-99) mg/dL Calcium 9.5 (8.4-10.2) mg/dL Total Bilirubin 0.2 (0.2-1.3) mg/dL AST 25 (14-36) U/L ALT 17 (4-34) U/L Alkaline Phosphatase 62 (38-126) U/L Total Protein 7.8 (6.3-8.2) g/dL Albumin 4.6 (3.5-5.0) g/dL - Radiology Data Radiology results: report reviewed, image reviewed CT angiography of the brain: No flow limiting stenosis bilateral rotted bifurcations. Normal [place]. Chronic-appearing periventricular white matter ischemic type changes. Disposition Clinical Impression: Migraine headache Disposition: HOME SELF-CARE Condition: Stable Instructions (If sedation given, give patient instructions): Acute Headache (ED) Additional Instructions: Please return to the Emergency Department if symptoms worsen or any other concerns. Follow-up with primary care in the next several days. Take at home medications as prescribed. Can take Tylenol and Motrin as needed around the clock for pain control. Increase oral fluids. Is patient prescribed a controlled substance at d/c from ED?: No Referrals: Damien Light DO [Primary Care Provider] - 1-2 days Time of Disposition: 13:10
[2021-03-13] MEDS ORDERED: ACET/COD 300 MG/30 MG STARTER PACK 6 TAB BTL PO STA (13:14)
[2021-03-13 13:31] VITALS: PULSE 95
== END 2021-03-13 13:28 | disposition home or self-care (01) ==
LOC: EC 09:55
DX: G43.909 Migraine, unspecified, not intractable, without status migrainosus (principal); J44.9 Chronic obstructive pulmonary disease, unspecified; M19.90 Unspecified osteoarthritis, unspecified site; F12.90 Cannabis use, unspecified, uncomplicated; Z79.82 Long term (current) use of aspirin; Z79.1 Long term (current) use of non-steroidal anti-inflammatories (NSAID); Z79.891 Long term (current) use of opiate analgesic; Z87.891 Personal history of nicotine dependence
CPT/HCPCS: 36415; 80053; 85025; 85610; 85730; 70496; 70498; 96374; 96375; 96376; 96361; 99284; J2270; J2405; Q9967

== ENCOUNTER → 2021-11-21 | Outpatient (CLI) | payer MEDICARE ==
--- NOTE | 2021-11-24 08:08 | MM ---
Reason for exam: clinical finding. Last mammogram was performed 1 year and 6 months ago. History: Patient is postmenopausal and has history of high-risk lesion on a previous biopsy at age 67. Family history of breast cancer. High risk MG pre op needle loc LT of the left breast, July 13, 2017. High risk US biopsy breast VAD LT of the left breast, June 08, 2017. Physical Findings: A clinical breast exam by your physician is recommended on an annual basis and results should be correlated with mammographic findings. MG 3D Diag Mammo W/Cad LIYAH Bilateral CC and MLO view(s) were taken. Prior study comparison: May 21, 2020, bilateral MG 3d screening mammo w/cad. February 27, 2019, bilateral MG 3d screening mammo w/cad. February 24, 2018, bilateral MG 3d diag mammo w/cad LIYAH. There are scattered fibroglandular densities. Finding: Architectural distortion in the anterior position of the left breast consistent with known post treatment changes. 9mm oval lesion upper outer quadrant posterior depth at palpable. Results were given to the patient verbally at the time of the exam. ASSESSMENT: Incomplete: need additional imaging evaluation, BI-RAD 0 RECOMMENDATION: Ultrasound of the left breast.
--- NOTE | 2021-11-24 08:11 | USB ---
Reason for exam: additional evaluation requested from abnormal screening. History: Patient is postmenopausal and has history of high-risk lesion on a previous biopsy at age 67. Family history of breast cancer. High risk MG pre op needle loc LT of the left breast, July 13, 2017. High risk US biopsy breast VAD LT of the left breast, June 08, 2017. Physical Findings: A clinical breast exam by your physician is recommended on an annual basis and results should be correlated with mammographic findings. US Breast Limited LT Technologist: Philly Kat Left limited breast ultrasound including focal area of concern, retroareolar and axilla demonstrates a 0.6 x 0.8 x 0.4cm oval, hypoechoic to anechoic lesion at 1 o'clock, 9cm from nipple, with thick wall, suspect resolving tiny subcutaneous hematoma. Scanned 12-2 o'clock. Results were given to the patient verbally at the time of the exam. ASSESSMENT: Probably benign, BI-RAD 3 RECOMMENDATION: Ultrasound of the left breast in 2 months. (2-3 months)
== END | disposition home or self-care (01) ==
LOC: RADMAMWWP 14:41
PROVIDERS: ATTEND Family Medicine
DX: N64.59 Other signs and symptoms in breast (principal); Z78.0 Asymptomatic menopausal state; Z80.3 Family history of malignant neoplasm of breast
CPT/HCPCS: 77066; 76642; G0279; 77062

== ENCOUNTER → 2022-02-11 | Outpatient (CLI) | payer MEDICARE ==
--- NOTE | 2022-02-11 10:25 | USB ---
Reason for Exam: Follow-up at short interval from prior study. Patient History: Menarche at age 14. First Full-Term at age 30. Postmenopausal. 07/13/2017, High risk Core Biopsy on the left side. 06/08/2017, High risk Core Biopsy on the left side. Maternal unspecified had breast cancer. Risk Values: Tara 5 year model risk: 2.9%. NCI Lifetime model risk: 8.3%. Technique: Method: Targeted. Prior Study Comparison: 02/27/2019 Bilateral Screening Mammogram, [facility]. 05/21/2020 Bilateral Screening Mammogram, [facility]. 11/21/2021 Bilateral Diagnostic Mammogram, [facility]. Findings: No solid or cystic masses are identified. Previous suspected hematoma appears completely resolved. No residual was evident. Overall Assessment: Negative, BI-RAD 1 Management: Screening Mammogram of both breasts in 4 months. A clinical breast exam by your physician is recommended on an annual basis and results should be correlated with mammographic findings. Electronically signed and approved by: Damien Vyas D.O. Radiologis
== END | disposition home or self-care (01) ==
LOC: RADUSWWP 09:08
PROVIDERS: ATTEND Family Medicine
DX: R92.8 Other abnormal and inconclusive findings on diagnostic imaging of breast (principal); Z78.0 Asymptomatic menopausal state

== ENCOUNTER → 2022-06-09 | Outpatient (CLI) | payer MEDICARE ==
--- NOTE | 2022-06-10 17:15 | MM ---
Reason for Exam: Screening (asymptomatic). Last screening mammogram was performed 6 month(s) ago. Patient History: Menarche at age 14. First Full-Term at age 30. Postmenopausal. 07/13/2017, High risk Core Biopsy on the left side. 06/08/2017, High risk Core Biopsy on the left side. Maternal unspecified had breast cancer. Risk Values: Tara 5 year model risk: 2.9%. NCI Lifetime model risk: 8.3%. Prior Study Comparison: 02/27/2019 Bilateral Screening Mammogram, [facility]. 05/21/2020 Bilateral Screening Mammogram, [facility]. 11/21/2021 Bilateral Diagnostic Mammogram, [facility]. Tissue Density: There are scattered fibroglandular densities. Findings: Analyzed By CAD. Postsurgical changes are within the left breast. This appears stable. No suspicious groups of microcalcifications, spiculated or lobular masses, architectural distortion or other secondary signs of malignancy are mammographically apparent. Overall Assessment: Benign, BI-RAD 2 Management: Screening Mammogram of both breasts in 1 year. A negative mammogram report should not preclude additional follow up of suspicious palpable abnormalities. Patient should continue monthly self breast exam. A clinical breast exam by your physician is recommended on an annual basis and results should be correlated with mammographic findings. Electronically signed and approved by: Damien Vyas D.O. Radiologis
== END | disposition home or self-care (01) ==
LOC: RADMAMWWP 16:04
PROVIDERS: ATTEND Family Medicine
DX: Z12.31 Encounter for screening mammogram for malignant neoplasm of breast (principal)
CPT/HCPCS: 77063; 77067

== ENCOUNTER → 2023-07-22 | Outpatient (CLI) | payer MEDICARE ==
--- NOTE | 2023-07-25 18:21 | MM ---
Reason for Exam: Screening (asymptomatic). Last mammogram was performed 1 year(s) and 2 month(s) ago. Patient History: Menarche at age 14. First Full-Term at age 30. Postmenopausal. 07/13/2017, High risk Core Biopsy on the left side. 06/08/2017, High risk Core Biopsy on the left side. Maternal unspecified had breast cancer. Risk Values: Tara 5 year model risk: 2.9%. NCI Lifetime model risk: 7.5%. Prior Study Comparison: 05/21/2020 Bilateral Screening Mammogram, [facility]. 11/21/2021 Bilateral Diagnostic Mammogram, [facility]. 06/09/2022 Bilateral MG 3D screening mammo w/cad, [facility]. Tissue Density: There are scattered fibroglandular densities. Findings: Analyzed By CAD. Postsurgical change redemonstrated on the left. There is no suspicious group of microcalcifications or new suspicious mass in either breast. Overall Assessment: Benign, BI-RAD 2 Management: Screening Mammogram of both breasts in 1 year. . Patient should continue monthly self-breast exams. A clinical breast exam by your physician is recommended on an annual basis. This exam should not preclude additional follow-up of suspicious palpable abnormalities. Note on Tara scores and lifetime risk: 1. A Tara score greater than 3% is considered moderate risk. If this is the case, consider specialist referral to assess eligibility for a risk reducing agent. 2. If overall lifetime risk for the development of breast cancer is 20% or higher, the patient may qualify for future screening with alternating mammogram and breast MRI. Electronically signed and approved by: Tc Patterson M.D. Radiologist
== END | disposition home or self-care (01) ==
LOC: RADMAMWWP 07:55
PROVIDERS: ATTEND Family Medicine
DX: Z12.31 Encounter for screening mammogram for malignant neoplasm of breast (principal); Z78.0 Asymptomatic menopausal state
CPT/HCPCS: 77063; 77067

== ENCOUNTER 2023-12-22 14:53 | Emergency (ER) | payer MEDICARE, OTHER ==
[2023-12-22 15:16] VITALS: RESP 18
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
[2023-12-22] MEDS: DIPH,PERTUS(ACELL)TETVAC-LF 0.5 ML VIAL IM ONE (15:46)
[2023-12-22 15:49] LABS: Basophils # (A) 0.1 k/uL (0-0.2); Basophils % (A) 1 %; Eosinophils # (A) 0.1 k/uL (0-0.7); Eosinophils % (A) 2 %; HCT 40.9 % (34.0-46.0); HGB 13.4 gm/dL (11.4-16.0); Lymphocytes # (A) 1.7 k/uL (1.0-4.8); Lymphocytes % (A) 27 %; MCH 31.2 pg (25.0-35.0); MCHC 32.9 g/dL (31.0-37.0); Mean Platelet Volume 7.4; Monocytes # (A) 0.5 k/uL (0-1.0); Monocytes % (A) 8 %; Neutrophils # (A) 3.7 k/uL (1.3-7.7); Neutrophils % (A) 59 %; Platelet Count 251 k/uL (150-450); RDW 12.6 % (11.5-15.5); WBC 6.2 k/uL (3.8-10.6)
[2023-12-22 15:58] LABS: Partial Thromboplastin Time 23.8 sec (22.0-30.0); Prothrombin Time 10.6 sec (10.0-12.5)
[2023-12-22] MEDS: KETOROLAC 15 MG/ML 1 ML VIAL IM STA (16:36)
[2023-12-22 16:37] LABS: ALT 16 U/L (4-34); AST 27 U/L (14-36); African American GFR (CKD) >90 (>60 ml/min/1.73 sqM); Albumin 4.2 g/dL (3.5-5.0); Alcohol <10 mg/dL; Anion Gap 9 mmol/L; Blood Urea Nitrogen 15 mg/dL (7-17); Calcium 8.6 mg/dL (8.4-10.2); Carbon Dioxide 22 mmol/L (22-30); Chloride 100 mmol/L (98-107); Glucose 112 mg/dL (74-99); Non-African American GFR(CKD) >90 (>60 ml/min/1.73 sqM); Potassium 4.1 mmol/L (3.5-5.1); Sodium 131 mmol/L (137-145); Total Bilirubin 0.5 mg/dL (0.2-1.3)
[2023-12-22 16:41] LABS: Alkaline Phosphatase 79 U/L (38-126)
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
[2023-12-22] MEDS: levETIRAcetam IV 500 MG/5 ML VIAL IVP STA (17:53)
[2023-12-22 18:02] VITALS: TEMP 98.1
[2023-12-22 18:42] VITALS: BP 161/84; PULSE 91
== END 2023-12-22 18:04 | disposition other institution (70) ==
LOC: EC 14:53
DX: S06.6XAA Traumatic subarachnoid hemorrhage with loss of consciousness status unknown, initial encounter (principal); F12.90 Cannabis use, unspecified, uncomplicated; Z87.891 Personal history of nicotine dependence; Z23 Encounter for immunization; V89.2XXA Person injured in unspecified motor-vehicle accident, traffic, initial encounter; Y92.410 Unspecified street and highway as the place of occurrence of the external cause
CPT/HCPCS: 36415; 93005; 86900; 86901; 80053; 84484; 85025; 85610; 85730; 86850; 80320; 72170; 73562; 71045; 72125; 70486; 70450; 90715; 99291; 96374; 90471; J1953

== ENCOUNTER → 2024-02-08 | Outpatient (CLI) | payer OTHER ==
--- NOTE | 2024-02-08 14:44 | CT ---
EXAMINATION TYPE: CT brain wo con DATE OF EXAM: 02/08/2024 COMPARISON: 12/22/2023 HISTORY: Follow-up subarachnoid hemorrhage Unenhanced CT of the brain was performed. The ventricles, basal cisterns and sulci overlying the cerebral convexities demonstrate mild enlargem ent. There is no evidence for intracranial hemorrhage or sulcal effacement. There is decreased attenuation about the periventricular white matter and deep white matter of both c erebral hemispheres, compatible with chronic small vessel ischemia. Differential diagnosis does inclu de demyelination. No mass effects are seen.No midline shift. Osseous calvarium is intact. If symptoms persist consider MRI. IMPRESSION: 1. Age related atrophic and chronic small vessel ischemic change without acute intracranial process s een at this time.
== END | disposition home or self-care (01) ==
LOC: RADCTMAIN 14:16
PROVIDERS: ATTEND Neurological Surgery
DX: I60.9 Nontraumatic subarachnoid hemorrhage, unspecified (principal); I67.82 Cerebral ischemia; G93.89 Other specified disorders of brain
CPT/HCPCS: 70450

== ENCOUNTER → 2025-01-29 | Outpatient (CLI) | payer MEDICARE ==
--- NOTE | 2025-01-29 16:27 | MM ---
Reason for Exam: Screening (asymptomatic). Last mammogram was performed 1 year(s) and 6 month(s) ago. Patient History: Menarche at age 14. First Full-Term at age 30. Postmenopausal. 07/13/2017, High risk Core Biopsy on the left side. 06/08/2017, High risk Core Biopsy on the left side. Maternal unspecified had breast cancer. Risk Values: Tara 5 year model risk: 2.9%. NCI Lifetime model risk: 7.1%. Prior Study Comparison: 11/21/2021 Bilateral Diagnostic Mammogram, [facility]. 06/09/2022 Bilateral MG 3D screening mammo w/cad, [facility]. 07/22/2023 Bilateral MG 3D screening mammo w/cad, [facility]. Tissue Density: There are scattered areas of fibroglandular density. Findings: Analyzed By CAD. Post excisional changes left breast. Asymmetric density outer right cc view middle depth remains unchanged. There is no suspicious group of microcalcifications or new suspicious mass in either breast. Overall Assessment: Benign, BI-RAD 2 Management: Screening Mammogram of both breasts in 1 year. Patient should continue monthly self-breast exams. A clinical breast exam by your physician is recommended on an annual basis. This exam should not preclude additional follow-up of suspicious palpable abnormalities. Note on Tara scores and lifetime risk: 1. A Tara score greater than 3% is considered moderate risk. If this is the case, consider specialist referral to assess eligibility for a risk reducing agent. 2. If overall lifetime risk for the development of breast cancer is 20% or higher, the patient may qualify for future screening with alternating mammogram and breast MRI. [facility], , 01/29/2025 4:24 PM. Electronically signed and approved by: Tc Patterson M.D. Radiologist
== END | disposition home or self-care (01) ==
LOC: RADMAMWWP 15:33
PROVIDERS: ATTEND Family Medicine
DX: Z12.31 Encounter for screening mammogram for malignant neoplasm of breast (principal); R92.323 Mammographic fibroglandular density, bilateral breasts; Z78.0 Asymptomatic menopausal state; Z80.3 Family history of malignant neoplasm of breast
CPT/HCPCS: 77063; 77067